=== PATIENT | female | born 1940 | race Caucasian/White ===

== ENCOUNTER 2018-05-01 12:33 | Inpatient (IN) | payer MEDICARE, BC ==
[2018-05-01] MEDS ORDERED: Sodium Chloride 0.9% 1,000 ML IV STA (12:51)
[2018-05-01 14:10] LABS: BASO % 0.2 % (0.0-2.0); EOS % 0.1 % (0.0-4.0); HEMOGLOBIN 14.5 g/dL (12.0-16.0); LYMPH # 0.7 K/uL (1.0-4.3); LYMPH % 3.9 % (20.0-40.0); MEAN CELL VOLUME 82.3 fl (81.0-99.0); MEAN CORPUSCULAR HEMOGLOBIN 27.5 pg (27.0-31.0); MEAN CORPUSCULAR HGB CONC 33.4 g/dL (33.0-37.0); MEAN PLATELET VOLUME 9.9 fl (7.2-11.7); MONO # 0.9 K/uL (0.0-0.8); MONO % 5.5 % (0.0-10.0); NEUT # 15.1 K/uL (1.8-7.0); NEUT % 90.3 % (50.0-75.0); NRBC % 0.1 % (0.0-0.0); PLATELET COUNT 171 K/uL (130-400); RBC 5.27 Mil/uL (3.80-5.20); RED CELL DISTRIBUTION WIDTH 14.4 % (11.5-14.5); WHITE BLOOD COUNT 16.7 K/uL (4.8-10.8)
[2018-05-01 14:33] LABS: ALB/GLOB RATIO 1.2 (1.0-2.1); ALT/SGPT 21 U/L (9-52); AST/SGOT 31 U/L (14-36); BLOOD UREA NITROGEN 17 mg/dl (7-17); CALCIUM 9.3 mg/dL (8.4-10.2); GFR NON-AFRICAN AMERICAN > 60; LIPASE 48 U/L (23-300)
[2018-05-01 14:37] LABS: INR 1.1; PROTHROMBIN TIME 12.4 Seconds (9.8-13.1)
[2018-05-01 14:39] LABS: URINE AMORPHOUS SEDIMENT OCC /ul (<OCC); URINE BACTERIA FEW (<OCC); URINE BILIRUBIN NEGATIVE (NEGATIVE); URINE BLOOD NEGATIVE (NEGATIVE); URINE CLARITY TURBID (Clear); URINE COLOR AMBER (YELLOW); URINE GLUCOSE (UA) NEG (Normal); URINE LEUKOCYTE ESTERASE NEG Leu/uL (Negative); URINE PROTEIN NEGATIVE (NEGATIVE)
[2018-05-01 14:40] LABS: PARTIAL THROMBOPLASTIN TIME 32.4 Seconds (25.6-37.1)
[2018-05-01 14:54] LABS: BANDS 4 % (0-2); LYMPHOCYTE 6 % (20-50); MONOCYTE 6 % (0-10); NEUTROPHIL 84 % (42-75); TOTAL CELLS COUNTED 100
[2018-05-01 14:55] LABS: PLATELET ESTIMATE NORMAL (NORMAL)
[2018-05-01] MEDS ORDERED: Iohexol 300 100 ML IJ ONE (16:06)
[2018-05-01] MEDS ORDERED: Sodium Chloride 0.9% 50 ML IV ONE (16:06)
--- NOTE | 2018-05-01 16:50 | ED PDOC ---
HPI: General Adult Time Seen by Provider: 05/01/18 12:46 Chief Complaint (Nursing): Dizziness/Lightheaded Chief Complaint (Provider): dizzy, abd pain, constipation History Per: Patient History/Exam Limitations: no limitations Current Symptoms Are (Timing): Still Present Severity: Moderate Additional Complaint(s): 77yo female c/o dizzy (lightheaded) associated with lower abdominal pain and inability to move her bowels. Notes nausea and 2 episodes nonbloody vomiting. Past Medical History Reviewed: Historical Data, Nursing Documentation, Vital Signs Vital Signs: Last Vital Signs Temp 99.0 F 05/01/18 16:50 Pulse 96 H 05/01/18 16:50 Resp 18 05/01/18 16:50 BP 132/58 L 05/01/18 16:50 Pulse Ox 97 05/01/18 19:55 - Surgical History Other surgeries: CODY - Family History Family History: States: Unknown Family Hx - Living Arrangements Living Arrangements: With Family - Social History Current smoker - smoking cessation education provided: No - Allergies Allergies/Adverse Reactions: Allergies Allergy/AdvReac Type Severity Reaction Status Date / Time sulfamethoxazole Allergy RASH Verified 05/01/18 12:44 [From Bactrim] trimethoprim [From Bactrim] Allergy RASH Verified 05/01/18 12:44 Review of Systems Constitutional: Negative for: Fever ENT: Negative for: Nose Discharge Cardiovascular: Negative for: Chest Pain Respiratory: Negative for: Cough Gastrointestinal: Positive for: Nausea, Vomiting, Abdominal Pain, Constipation Genitourinary Female: Negative for: Dysuria, Hematuria Musculoskeletal: Negative for: Neck Pain Skin: Negative for: Rash, Lesions Neurological: Negative for: Weakness Physical Exam - Reviewed Nursing Documentation Reviewed: Yes Vital Signs Reviewed: Yes - Physical Exam Appears: Positive for: Well, Non-toxic, No Acute Distress Head Exam: Positive for: ATRAUMATIC, NORMAL INSPECTION, NORMOCEPHALIC Skin: Positive for: Normal Color, Warm, DRY Eye Exam: Positive for: EOMI, Normal appearance, PERRL ENT: Positive for: Normal ENT Inspection Neck: Positive for: Normal, Painless ROM Cardiovascular/Chest: Positive for: Regular Rate, Rhythm Respiratory: Positive for: CNT, Normal Breath Sounds Gastrointestinal/Abdominal: Positive for: Soft, Tenderness Back: Positive for: Normal Inspection Extremity: Positive for: Normal ROM Neurologic/Psych: Positive for: Alert, Oriented - Laboratory Results Result Diagrams: 05/01/18 14:00 05/01/18 14:00 - ECG O2 Sat by Pulse Oximetry: 97 Medical Decision Making Medical Decision Making: labs reviewed reveal elev WBC 16.7 w left shift UA reveals evidence UTI chem unremarkable CT: Accession No. : [id number] Patient Name / ID : JALYN RUDOLPH / [id number] Exam Date : 05/01/2018 16:11:28 ( Approved ) Study Comment : Sex / Age : F / 77Y Creator : Sofi Limon MD Dictator : Sofi Limon MD Manual Training Teacher : Licensed Massage Practitioner : Sofi Limon MD Approver2 : Report Date : 05/01/2018 16:49:29 My Comment : Date of service: 05/01/2018 PROCEDURE: CT Abdomen and Pelvis with contrast HISTORY: lower abd pain obstipation dizzy COMPARISON: None. TECHNIQUE: CT scan of the abdomen and pelvis was performed after administration of intravenous contrast. Oral contrast was not administered. Coronal and sagittal reformatted images were obtained. Contrast dose: 90 mL Omnipaque 300 Radiation dose: Total exam DLP = 378.54 mGy-cm. This CT exam was performed using one or more of the following dose reduction techniques: Automated exposure control, adjustment of the mA and/or kV according to patient size, and/or use of iterative reconstruction technique. FINDINGS: LOWER THORAX: There is subsegmental atelectasis in the lingula and both lung bases. LIVER: Mild hepatomegaly and diffuse fatty. No gross lesion or ductal dilatation. GALLBLADDER AND BILE DUCTS: Well distended without evidence for calcified gallstones normal in size. PANCREAS: With homogeneous enhancement. No gross lesion or ductal dilatation. SPLEEN: Normal in size and appearance. ADRENALS: No discrete nodule. KIDNEYS AND URETERS: Normal in size with homogeneous enhancement. No hydronephrosis. There is a 10 mm exophytic simple cyst in the left upper pole. VASCULATURE: Atherosclerotic aortoiliac calcifications are present. No aortic aneurysm. BOWEL: The small bowel loops are normal in caliber. There is fecalization of small bowel contents. There is large amount of stool in the colon. There is apparent mild mural thickening in distal descending sigmoid colon with mild mural enhancement. There is mild pericolonic inflammatory changes without drainable abscess or fluid collection. There is mild sigmoid diverticulosis. APPENDIX: Normal appendix. PERITONEUM: No free fluid. No free air. LYMPH NODES: No enlarged lymph nodes. BLADDER: Normal in appearance. REPRODUCTIVE: The uterus is surgically absent. BONES: No acute fracture. There is diffuse bone demineralization and multilevel degenerative changes in the spine. OTHER FINDINGS: None. IMPRESSION: Findings are most compatible with acute nonspecific infectious/inflammatory colitis involving the distal descending and sigmoid colon. Severe constipation and fecalization of small bowel contents compatible with chronic stasis. -------- ED course: several hours into ED visit, HR >90, SIRS criteria + with elev WBC qualifies for sepsis, cultures obtained, lactate obtained and <2.0, zosyn initiated given elevated WBC, evidence of intra-abdominal infection, discomfort on exam and evidence dehydration, place Obs to medicine artist consultant Dr Stein Family and patient updated on results. Disposition - Clinical Impression Clinical Impression: Sepsis, Colitis, Dizziness - Patient ED Disposition Is Patient to be Admitted: Yes Counseled Patient/Family Regarding: Studies Performed, Diagnosis, Need For Followup - Disposition Disposition Time: 16:40 Condition: FAIR - Pt Status Changed To: Hospital Disposition Of: Observation - POA Present On Arrival: None
[2018-05-01] MEDS ORDERED: Piperacillin/Tazobact 3.375 GM in Sodium Chloride 0.9% 100 ML IVPB STA (17:34)
[2018-05-01] MEDS ORDERED: Piperacillin/Tazobact 3.375 gm Inj IVPB ONE (18:25)
[2018-05-01 19:00] LABS: VENOUS BLOOD GAS BASE EXCESS 2.4 mmol/L (0.0-2.0); VENOUS BLOOD GAS PCO2 38 mmHg (40-60); VENOUS BLOOD GAS PO2 21 mm/Hg (30-55); VENOUS BLOOD PH 7.45 (7.32-7.43)
[2018-05-01] MEDS: Dextrose 5%/0.45% NS 1,000 ML IV SCH (21:59)
[2018-05-01] MEDS: Latanoprost 0.005% Opht SOUTION OU SCH (22:10)
--- NOTE | 2018-05-01 22:45 | CARD ---
APPROVED REPORT Date of service: 05/01/2018 EKG Measurement Heart [id number] <Conclusion> Normal sinus rhythm Nonspecific T wave abnormality Abnormal ECG
[2018-05-02] MEDS: Piperacillin/Tazobact 3.375 GM in Sodium Chloride 0.9% 100 ML IVPB SCH ×4 (03:46→21:24)
[2018-05-02 05:56] LABS: BASO % 0.1 % (0.0-2.0); EOS # 0.1 K/uL (0.0-0.7); EOS % 1.1 % (0.0-4.0); HEMOGLOBIN 12.7 g/dL (12.0-16.0); LYMPH # 1.1 K/uL (1.0-4.3); LYMPH % 10.2 % (20.0-40.0); MEAN CELL VOLUME 83.7 fl (81.0-99.0); MEAN CORPUSCULAR HEMOGLOBIN 27.5 pg (27.0-31.0); MEAN CORPUSCULAR HGB CONC 32.9 g/dL (33.0-37.0); MEAN PLATELET VOLUME 9.8 fl (7.2-11.7); MONO # 0.7 K/uL (0.0-0.8); MONO % 6.6 % (0.0-10.0); NEUT # 9.1 K/uL (1.8-7.0); RBC 4.6 Mil/uL (3.80-5.20); RED CELL DISTRIBUTION WIDTH 14.9 % (11.5-14.5); WHITE BLOOD COUNT 11.1 K/uL (4.8-10.8)
[2018-05-02 06:13] LABS: ALB/GLOB RATIO 1.1 (1.0-2.1); ALBUMIN 3.1 g/dL (3.5-5.0); ALT/SGPT 26 U/L (9-52); AST/SGOT 26 U/L (14-36); BLOOD UREA NITROGEN 14 mg/dl (7-17); CALCIUM 8.4 mg/dL (8.4-10.2); GFR NON-AFRICAN AMERICAN > 60
[2018-05-02] MEDS: Potassium Chloride 20 mEq ER Tab PO SCH ×2 (09:00→16:11)
--- NOTE | 2018-05-02 13:10 | RAD ---
Date of service: 05/02/2018 HISTORY: constipation COMPARISON: No prior. FINDINGS: BOWEL: Normal. No obstruction. No free air. BONES: Normal. OTHER FINDINGS: None. IMPRESSION: No significant or acute findings to account for/ related to the clinical presentation.
[2018-05-02] MEDS ORDERED: Bisacodyl 5mg EC Tab PO ONE (13:13)
[2018-05-02] MEDS: Dextrose 5%/0.45% NS 1,000 ML IV SCH (14:42)
[2018-05-02] MEDS ORDERED: Magnesium Citrate Oral SOL (300 ml) PO ONE ×2 (15:09→16:50)
--- NOTE | 2018-05-02 19:18 | CP.PCM.HP ---
History of Present Illness - History of Present Illness History of Present Illness: HPI: Pt is a 77 y/o female with pmhx of HTN, HLD, and frequent UTI's who presented to ED with complaints of generalized weakness, lower abdominal pain, watery bowel movements, associated with 2 episodes of non bloody vomiting for the past 2-3 days. Denies fevers/chills, hematochezia, dysuria, sick contacts, recent travel, or ingestion of unusual foods. PMD: Dr. BEEBE notable for +frequent urination, +lightheadeness. PMHX: HTN, HLD, Frequent UTI's (was on [facility]p antibiotic therapy in the past) PSurgHx: Total Hysterectomy, Bladder Suspension FmHx: denies Social: Non smoker, denies alcohol or drug use. Lives with family ED Course/Interventions: -Pt noted to be Tachycardiac with Leukocytosis 16.7 -U/A: + Nitrates, few bacteria -Potasssium 3.2 -Abdomen/Pelvis CT: -S/P Zofran, IV Torodol, IV Fluids, Zosyn -Infectious/Inflammatory Colitis of descending and sigmoid colon, fecalization of small bowel suggesting chronic stasis Present on Admission - Present on Admission Any Indicators Present on Admission: No Past Patient History - Infectious Disease Hx of Infectious Diseases: None - Past Medical History & Family History Past Medical History?: Yes - Past Social History Smoking Status: Never Smoked - CARDIAC Hx Hypercholesterolemia: Yes Hx Hypertension: Yes Other/Comment: DVT, PE - PULMONARY Hx Pulmonary Embolism: Yes - NEUROLOGICAL Hx Transient Ischemic Attacks (TIA): Yes (NO RESIDUAL DEFICITS) - HEMATOLOGICAL/ONCOLOGICAL Hx AIDS: No Hx Human Immunodeficiency Virus (HIV): No - MUSCULOSKELETAL/RHEUMATOLOGICAL Hx Falls: No - PSYCHIATRIC Hx Substance Use: No - SURGICAL HISTORY Hx Surgeries: Yes Hx Hysterectomy: Yes Other/Comment: L4-L5 - ANESTHESIA Hx Anesthesia: Yes Hx Anesthesia Reactions: No Hx Malignant Hyperthermia: No Meds Allergies/Adverse Reactions: Allergies Allergy/AdvReac Type Severity Reaction Status Date / Time sulfamethoxazole Allergy RASH Verified 05/01/18 12:44 [From Bactrim] trimethoprim [From Bactrim] Allergy RASH Verified 05/01/18 12:44 Physical Exam - Constitutional Appears: Well, Non-toxic, No Acute Distress - Head Exam Head Exam: NORMAL INSPECTION - Eye Exam Eye Exam: Normal appearance - ENT Exam ENT Exam: Mucous Membranes Moist - Neck Exam Neck exam: Positive for: Full Rom - Respiratory Exam Respiratory Exam: Clear to Auscultation Bilateral - GI/Abdominal Exam GI & Abdominal Exam: Normal Bowel Sounds, Tenderness (Lower quadrants bilaterally, marked in left, no gaurding or rigidity) - Extremities Exam Extremities exam: Positive for: normal inspection - Neurological Exam Neurological exam: Alert, Oriented x3 - Psychiatric Exam Psychiatric exam: Normal Affect, Normal Mood - Skin Skin Exam: Normal Color Results - Vital Signs Recent Vital Signs: Last Vital Signs Temp 97.9 F 05/02/18 15:45 Pulse 73 05/02/18 15:45 Resp 20 05/02/18 15:45 BP 131/64 05/02/18 15:45 Pulse Ox 98 05/02/18 15:45 - Labs Result Diagrams: 05/02/18 05:39 05/02/18 05:39 Labs: Laboratory Results - last 24 hr 05/02/18 05/02/18 05:39 05:39 WBC 11.1 H RBC 4.60 Hgb 12.7 Hct 38.5 MCV 83.7 MCH 27.5 MCHC 32.9 L RDW 14.9 H Plt Count 150 MPV 9.8 Neut % (Auto) 82.0 H Lymph % (Auto) 10.2 L Blount % (Auto) 6.6 Eos % (Auto) 1.1 Baso % (Auto) 0.1 Neut # (Auto) 9.1 H Lymph # (Auto) 1.1 Blount # (Auto) 0.7 Eos # (Auto) 0.1 Baso # (Auto) 0.0 Sodium 139 Potassium 3.2 L Chloride 107 Carbon Dioxide 26 Anion Gap 9 L BUN 14 Creatinine 0.7 Est GFR ( Amer) > 60 Est GFR (Non-Af Amer) > 60 Random Glucose 166 H Calcium 8.4 Phosphorus 2.9 Magnesium 2.3 Total Bilirubin 1.0 AST 26 ALT 26 Alkaline Phosphatase 79 Total Protein 6.0 L Albumin 3.1 L D Globulin 2.9 Albumin/Globulin Ratio 1.1 Assessment & Plan (1) Colitis Status: Acute (2) Sepsis Status: Resolved (3) Hypokalemia Status: Acute (4) UTI (urinary tract infection) Status: Acute - Assessment and Plan (Free Text) Assessment: Pt is a 77 y/o female with pmhx of HTN, HLD, and frequent UTI's who presented to ED with complaints of generalized weakness, lower abdominal pain, watery bowel movements, and non bloody vomiting admitted for sepsis secondary to colitis. #Sepsis, resolved, no longer fits criteria #Colitis, acute, c/w Zosyn, f/u stool studies #Fecalization of stool on CT, chronic, GI consulted, Upright Abd Xray to rule out SBO #Hypokalemia, acute, repleted, f/u am bmp #UTI, Ucx pending, on Zosyn Discussed Case with Dr. Emil Valdez, PGY2
--- NOTE | 2018-05-02 19:55 | CP.PCM.CON ---
History of Present Illness - History of Present Illness History of Present Illness: 77 yo female coming to the ER c/o lightheadedness, lower abdominal pain, and inability to move bowels. Also c/o abdominal swelling and difficulty eating. Had 2 episodes of nonbloody vomiting. Past Patient History - Infectious Disease Hx of Infectious Diseases: None - Past Medical History & Family History Past Medical History?: Yes - Past Social History Smoking Status: Never Smoked - CARDIAC Hx Hypercholesterolemia: Yes Hx Hypertension: Yes Other/Comment: DVT, PE - PULMONARY Hx Pulmonary Embolism: Yes - NEUROLOGICAL Hx Transient Ischemic Attacks (TIA): Yes (NO RESIDUAL DEFICITS) - HEMATOLOGICAL/ONCOLOGICAL Hx AIDS: No Hx Human Immunodeficiency Virus (HIV): No - MUSCULOSKELETAL/RHEUMATOLOGICAL Hx Falls: No - PSYCHIATRIC Hx Substance Use: No - SURGICAL HISTORY Hx Surgeries: Yes Hx Hysterectomy: Yes Other/Comment: L4-L5 - ANESTHESIA Hx Anesthesia: Yes Hx Anesthesia Reactions: No Hx Malignant Hyperthermia: No Meds Allergies/Adverse Reactions: Allergies Allergy/AdvReac Type Severity Reaction Status Date / Time sulfamethoxazole Allergy RASH Verified 05/01/18 12:44 [From Bactrim] trimethoprim [From Bactrim] Allergy RASH Verified 05/01/18 12:44 - Medications Medications: Current Medications Amlodipine Besylate (Norvasc) 2.5 mg PO DAILY [facility] Last Admin: 05/02/18 09:01 Dose: 2.5 mg Atorvastatin Calcium (Lipitor) 20 mg PO HS [facility] Last Admin: 05/01/18 22:10 Dose: 20 mg Piperacillin Sod/Tazobactam (Sod 3.375 gm/ Sodium Chloride) 100 mls @ 100 mls/ hr IVPB Q6 [facility] PRN Reason: Protocol Last Admin: 05/02/18 16:13 Dose: 100 mls/hr Dextrose/Sodium Chloride (Dextrose 5%/0.45% Ns 1000 Ml) 1,000 mls @ 80 mls/hr IV [id number] [facility] Stop: 05/02/18 21:08 Last Admin: 05/02/18 14:42 Dose: 80 mls/hr Latanoprost (Xalatan Opht) 1 drop OU HS [facility] Last Admin: 05/01/18 22:10 Dose: 1 drop Losartan Potassium (Cozaar) 100 mg PO DAILY [facility] Last Admin: 05/02/18 09:01 Dose: 100 mg Timolol Maleate (Timoptic 0.5% Ophth Soln) 1 drop OU DAILY [facility] Last Admin: 05/02/18 10:20 Dose: 1 drop Physical Exam - Constitutional Appears: No Acute Distress - Head Exam Head Exam: ATRAUMATIC - Eye Exam Eye Exam: Normal appearance - ENT Exam ENT Exam: Normal Exam - Neck Exam Neck exam: Negative for: Lymphadenopathy - Respiratory Exam Respiratory Exam: Clear to Auscultation Bilateral - Cardiovascular Exam Cardiovascular Exam: REGULAR RHYTHM, +S1, +S2 - GI/Abdominal Exam GI & Abdominal Exam: Distended, Normal Bowel Sounds. absent: Tenderness Additional comments: Marked generalized distention Results - Vital Signs Recent Vital Signs: Last Vital Signs Temp 97.9 F 05/02/18 15:45 Pulse 73 05/02/18 15:45 Resp 20 05/02/18 15:45 BP 131/64 05/02/18 15:45 Pulse Ox 98 05/02/18 15:45 - Labs Result Diagrams: 05/02/18 05:39 05/02/18 05:39 Labs: Laboratory Results - last 24 hr 05/02/18 05/02/18 05:39 05:39 WBC 11.1 H RBC 4.60 Hgb 12.7 Hct 38.5 MCV 83.7 MCH 27.5 MCHC 32.9 L RDW 14.9 H Plt Count 150 MPV 9.8 Neut % (Auto) 82.0 H Lymph % (Auto) 10.2 L [place] % (Auto) 6.6 Eos % (Auto) 1.1 Baso % (Auto) 0.1 Neut # (Auto) 9.1 H Lymph # (Auto) 1.1 [place] # (Auto) 0.7 Eos # (Auto) 0.1 Baso # (Auto) 0.0 Sodium 139 Potassium 3.2 L Chloride 107 Carbon Dioxide 26 Anion Gap 9 L BUN 14 Creatinine 0.7 Est GFR ( Amer) > 60 Est GFR (Non-Af Amer) > 60 Random Glucose 166 H Calcium 8.4 Phosphorus 2.9 Magnesium 2.3 Total Bilirubin 1.0 AST 26 ALT 26 Alkaline Phosphatase 79 Total Protein 6.0 L Albumin 3.1 L D Globulin 2.9 Albumin/Globulin Ratio 1.1 - Imaging and Cardiology CT scan - abdomen Status: Image reviewed by me, Report reviewed by me Assessment & Plan (1) Abdominal distention Assessment and Plan: Marked abdominal distention with severe fecal impaction. Had been on an anticholinergic for urinary incontinence around the time symptoms began. CT demonstrated colon wall thickening with mild pericolonic inflammatory changes c/ w possible colitis. Will give dulcolax tablets and Magnesium Citrate to disimpact the small intestine/colon. Continue Zosyn for now . Will follow carefully clinically. Status: Acute
[2018-05-02] MEDS: Latanoprost 0.005% Opht SOUTION OU SCH (21:25)
[2018-05-03] MEDS: Piperacillin/Tazobact 3.375 GM in Sodium Chloride 0.9% 100 ML IVPB SCH ×4 (04:17→22:11)
[2018-05-03 05:51] LABS: BASO % 0.6 % (0.0-2.0); EOS # 0.4 K/uL (0.0-0.7); EOS % 5.7 % (0.0-4.0); HEMOGLOBIN 12.9 g/dL (12.0-16.0); LYMPH # 1.4 K/uL (1.0-4.3); LYMPH % 21.6 % (20.0-40.0); MEAN CELL VOLUME 83.8 fl (81.0-99.0); MEAN CORPUSCULAR HEMOGLOBIN 27.7 pg (27.0-31.0); MEAN CORPUSCULAR HGB CONC 33.1 g/dL (33.0-37.0); MEAN PLATELET VOLUME 9.7 fl (7.2-11.7); MONO # 0.5 K/uL (0.0-0.8); MONO % 8.5 % (0.0-10.0); NEUT # 4.1 K/uL (1.8-7.0); NEUT % 63.6 % (50.0-75.0); RBC 4.65 Mil/uL (3.80-5.20); RED CELL DISTRIBUTION WIDTH 14.6 % (11.5-14.5); WHITE BLOOD COUNT 6.4 K/uL (4.8-10.8)
[2018-05-03 06:21] LABS: BLOOD UREA NITROGEN 7 mg/dl (7-17); CALCIUM 8.6 mg/dL (8.4-10.2); GFR NON-AFRICAN AMERICAN > 60
[2018-05-03] MEDS: Potassium Chloride 20 mEq ER Tab PO SCH ×2 (08:15→17:15)
--- NOTE | 2018-05-03 08:59 | CP.PCM.PN ---
Subjective - Date & Time of Evaluation Date of Evaluation: 05/03/18 Time of Evaluation: 08:00 - Subjective Subjective: PGY-4 GI Fellow Consult Note Pt lying in bed when seen this AM. States that abd pain mildly improved after watery BMs, but no sig solid BMs yet. 5 point ROS negative other than stated above Objective - Vital Signs/Intake and Output Vital Signs (last 24 hours): Temp Pulse Resp BP Pulse Ox 97.7 F 56 L 20 122/67 98 05/03/18 08:22 05/03/18 08:22 05/03/18 08:22 05/03/18 08:22 05/03/18 08:22 - Medications Medications: Current Medications Amlodipine Besylate (Norvasc) 2.5 mg PO DAILY [facility] Last Admin: 05/03/18 08:13 Dose: 2.5 mg Atorvastatin Calcium (Lipitor) 20 mg PO HS [facility] Last Admin: 05/02/18 21:25 Dose: 20 mg Piperacillin Sod/Tazobactam (Sod 3.375 gm/ Sodium Chloride) 100 mls @ 100 mls/ hr IVPB Q6 [facility] PRN Reason: Protocol Last Admin: 05/03/18 04:17 Dose: 100 mls/hr Latanoprost (Xalatan Opht) 1 drop OU HS [facility] Last Admin: 05/02/18 21:25 Dose: 1 drop Losartan Potassium (Cozaar) 100 mg PO DAILY [facility] Last Admin: 05/03/18 08:13 Dose: 100 mg Potassium Chloride (K-Dur 20 Meq Er Tab) 20 meq PO BID [facility] Stop: 05/03/18 17:01 Last Admin: 05/03/18 08:15 Dose: 20 meq Timolol Maleate (Timoptic 0.5% Ophth Soln) 1 drop OU DAILY [facility] Last Admin: 05/03/18 08:13 Dose: 1 drop - Labs Labs: 05/03/18 04:20 05/03/18 04:20 PT 12.4 Seconds (9.8-13.1) 05/01/18 14:15 INR 1.1 05/01/18 14:15 APTT 32.4 Seconds (25.6-37.1) 05/01/18 14:15 - Constitutional Appears: Well, No Acute Distress - Head Exam Head Exam: ATRAUMATIC, NORMAL INSPECTION - Eye Exam Eye Exam: EOMI. absent: Conjunctival injection, Scleral icterus - ENT Exam ENT Exam: Mucous Membranes Moist. absent: Mucous Membranes Dry, Normal External Ear Exam - Respiratory Exam Respiratory Exam: NORMAL BREATHING PATTERN. absent: Accessory Muscle Use, Wheezes - Cardiovascular Exam Cardiovascular Exam: REGULAR RHYTHM, RRR - GI/Abdominal Exam GI & Abdominal Exam: Distended (mildy), Soft, Tenderness (in bilateral lower quads and somewhat firm to deeper palpation), Normal Bowel Sounds. absent: Bruit, Firm, Guarding, Rigid, Mass, Organomegaly, Pulsatile Mass - Rectal Exam Rectal Exam: Deferred - Psychiatric Exam Psychiatric exam: Normal Affect, Normal Mood Assessment and Plan - Assessment and Plan (Free Text) Assessment: 77 yo F with HTN, HLD, h/o UTIs presenting with abd pain and distension. # Abd Pain and distenstion: Most likely related to extensive stool burden throughout colon. Loose BMs likely related to overflow. Also with possible underlying infectious colitis with loose stools, inflam changes seen and increased WBCs upon presentation; though could be reactive. Trigger to constipation likely related to recent bladder spasm medication with anti- cholinergic side effects though patient has recently stopped taking medication. Plan: - Milk of Mag and Dulcolax this AM - Encourage ambulation - Advanced diet to low fat - OK to stop antibiotics from GI standpoint, defer to primary - Encouraged patient to take daily stool softeners or miralax to stay regular - OK to DC from GI standpoint as long as abd pain continues to improved with stooling and tolerating diet Pt seen and examined with Dr. Vera. Thank you for the consult. Please see attestation for further recs/changes.
[2018-05-03] MEDS ORDERED: Chlorhexidine Gluconate 1 APPL/PKT TP ONE (09:21)
[2018-05-03] MEDS ORDERED: Bisacodyl 5mg EC Tab PO ONE (09:36)
[2018-05-03] MEDS ORDERED: Magnesium Hydroxide Susp 30 ml UD PO ONE (09:45)
--- NOTE | 2018-05-03 16:08 | CP.PCM.PN ---
Subjective - Date & Time of Evaluation Date of Evaluation: 05/03/18 Time of Evaluation: 09:00 - Subjective Subjective: Pt seen and examined this morning. No events overnight. Pt states she had 3-4 brown watery bowel movements with subsequent relief of abdominal cramping. Denies any well formed stool. Objective - Vital Signs/Intake and Output Vital Signs (last 24 hours): Temp Pulse Resp BP Pulse Ox 98.0 F 67 18 127/73 97 05/03/18 12:42 05/03/18 12:42 05/03/18 12:42 05/03/18 12:42 05/03/18 12:42 - Medications Medications: Current Medications Amlodipine Besylate (Norvasc) 2.5 mg PO DAILY [facility] Last Admin: 05/03/18 08:13 Dose: 2.5 mg Atorvastatin Calcium (Lipitor) 20 mg PO HS [facility] Last Admin: 05/02/18 21:25 Dose: 20 mg Piperacillin Sod/Tazobactam (Sod 3.375 gm/ Sodium Chloride) 100 mls @ 100 mls/ hr IVPB Q6 [facility] PRN Reason: Protocol Last Admin: 05/03/18 04:17 Dose: 100 mls/hr Latanoprost (Xalatan Opht) 1 drop OU HS [facility] Last Admin: 05/02/18 21:25 Dose: 1 drop Losartan Potassium (Cozaar) 100 mg PO DAILY [facility] Last Admin: 05/03/18 08:13 Dose: 100 mg Potassium Chloride (K-Dur 20 Meq Er Tab) 20 meq PO BID [facility] Stop: 05/03/18 17:01 Last Admin: 05/03/18 08:15 Dose: 20 meq Timolol Maleate (Timoptic 0.5% Ophth Soln) 1 drop OU DAILY [facility] Last Admin: 05/03/18 08:13 Dose: 1 drop - Labs Labs: 05/03/18 04:20 05/03/18 04:20 PT 12.4 Seconds (9.8-13.1) 05/01/18 14:15 INR 1.1 05/01/18 14:15 APTT 32.4 Seconds (25.6-37.1) 05/01/18 14:15 - Constitutional Appears: Well, Non-toxic, No Acute Distress - Head Exam Head Exam: NORMAL INSPECTION - Eye Exam Eye Exam: Normal appearance - ENT Exam ENT Exam: Mucous Membranes Moist - Neck Exam Neck Exam: Full ROM - Respiratory Exam Respiratory Exam: Clear to Ausculation Bilateral. absent: Rales, Wheezes - Cardiovascular Exam Cardiovascular Exam: REGULAR RHYTHM, +S1, +S2. absent: Murmur - GI/Abdominal Exam GI & Abdominal Exam: Soft, Normal Bowel Sounds. absent: Distended, Tenderness - Extremities Exam Extremities Exam: Normal Inspection. absent: Pedal Edema - Neurological Exam Neurological Exam: Alert, Oriented x3 - Psychiatric Exam Psychiatric exam: Normal Affect, Normal Mood - Skin Skin Exam: Normal Color Assessment and Plan (1) Colitis Status: Acute (2) Sepsis Status: Resolved (3) Hypokalemia Status: Acute (4) UTI (urinary tract infection) Status: Acute - Assessment and Plan (Free Text) Assessment: Pt is a 77 y/o female with pmhx of HTN, HLD, and frequent UTI's who presented to ED with complaints of generalized weakness, lower abdominal pain, watery bowel movements, and non bloody vomiting admitted for sepsis secondary to colitis and fecal impaction. #Colitis, resolving, As per GI can discontinue ABX but will continue as UCx is + for GNR (pending sensivities) #Fecalization of stool on CT, chronic, GI consulted- Dulcolax and MgCitrate, Upright Abd Xray negative for SBO, cleared for d/c #Hypokalemia, resolved #Ucx GNR, called lab, sensitivities should be complete by tomorrow. C/W Timothy Discussed Case with Dr. Emil Valdez, PGY2
[2018-05-03] MEDS: Latanoprost 0.005% Opht SOUTION OU SCH (22:13)
[2018-05-04] MEDS: Piperacillin/Tazobact 3.375 GM in Sodium Chloride 0.9% 100 ML IVPB SCH ×2 (04:50→09:13)
[2018-05-04 08:05] VITALS: BP 121/71; PULSE 58; RESP 20; TEMP 98.6; O2SAT 98
--- NOTE | 2018-05-05 11:38 | CP.PCM.DIS ---
Provider - Provider Date of Admission: 05/03/18 13:54 Attending physician: Ruel Stein MD Consults: GI - Dr. Vera Time Spent in preparation of Discharge (in minutes): 30 Diagnosis - Discharge Diagnosis (1) UTI (urinary tract infection) Status: Acute (2) Sepsis Status: Resolved Hospital Course - Lab Results Lab Results: Micro Results 05/01/18 18:30 Blood Blood Culture - Preliminary NO GROWTH AFTER 3 DAYS 05/01/18 18:38 Blood Blood Culture - Preliminary NO GROWTH AFTER 3 DAYS 05/02/18 18:34 Stool Stool Culture - Final NO SALMONELLA, SHIGELLA OR CAMPYLOBACTER ISOLATED. 05/01/18 19:13 Urine Urine Culture - Final Escherichia Coli 05/02/18 18:30 Stool Ova and Parasite Concentrate Exam - Final Most Recent Lab Values WBC 6.4 K/uL (4.8-10.8) 05/03/18 04:20 RBC 4.65 Mil/uL (3.80-5.20) 05/03/18 04:20 Hgb 12.9 g/dL (12.0-16.0) 05/03/18 04:20 Hct 38.9 % (34.0-47.0) 05/03/18 04:20 MCV 83.8 fl (81.0-99.0) 05/03/18 04:20 MCH 27.7 pg (27.0-31.0) 05/03/18 04:20 MCHC 33.1 g/dL (33.0-37.0) 05/03/18 04:20 RDW 14.6 % (11.5-14.5) H 05/03/18 04:20 Plt Count 145 K/uL (130-400) 05/03/18 04:20 MPV 9.7 fl (7.2-11.7) 05/03/18 04:20 Neut % (Auto) 63.6 % (50.0-75.0) 05/03/18 04:20 Lymph % (Auto) 21.6 % (20.0-40.0) 05/03/18 04:20 [place] % (Auto) 8.5 % (0.0-10.0) 05/03/18 04:20 Eos % (Auto) 5.7 % (0.0-4.0) H 05/03/18 04:20 Baso % (Auto) 0.6 % (0.0-2.0) 05/03/18 04:20 Neut # (Auto) 4.1 K/uL (1.8-7.0) 05/03/18 04:20 Lymph # (Auto) 1.4 K/uL (1.0-4.3) 05/03/18 04:20 [place] # (Auto) 0.5 K/uL (0.0-0.8) 05/03/18 04:20 Eos # (Auto) 0.4 K/uL (0.0-0.7) 05/03/18 04:20 Baso # (Auto) 0.0 K/uL (0.0-0.2) 05/03/18 04:20 Neutrophils % (Manual) 84 % (42-75) H 05/01/18 14:00 Band Neutrophils % 4 % (0-2) H 05/01/18 14:00 Lymphocytes % (Manual) 6 % (20-50) L 05/01/18 14:00 Monocytes % (Manual) 6 % (0-10) 05/01/18 14:00 Platelet Estimate Normal (NORMAL) 05/01/18 14:00 RBC Morphology Normal (NORMAL) 05/01/18 14:00 PT 12.4 Seconds (9.8-13.1) 05/01/18 14:15 INR 1.1 05/01/18 14:15 APTT 32.4 Seconds (25.6-37.1) 05/01/18 14:15 pO2 21 mm/Hg (30-55) L 05/01/18 18:57 VBG pH 7.45 (7.32-7.43) H 05/01/18 18:57 VBG pCO2 38 mmHg (40-60) L 05/01/18 18:57 VBG HCO3 25.2 mmol/L 05/01/18 18:57 VBG Total CO2 27.6 mmol/L (22-28) 05/01/18 18:57 VBG O2 Sat (Calc) 43.3 % (40-65) 05/01/18 18:57 VBG Base Excess 2.4 mmol/L (0.0-2.0) H 05/01/18 18:57 VBG Potassium 3.7 mmol/L (3.6-5.2) 05/01/18 18:57 Sodium 137.0 mmol/L (132-148) 05/01/18 18:57 Chloride 105.0 mmol/L (98-107) 05/01/18 18:57 Glucose 115 mg/dL (65-105) H 05/01/18 18:57 Lactate 1.8 mmol/L (0.7-2.1) 05/01/18 18:57 FiO2 21.0 % 05/01/18 18:57 Sodium 142 mmol/l (132-148) 05/03/18 04:20 Potassium 4.1 MMOL/L (3.6-5.0) 05/03/18 04:20 Chloride 111 mmol/L (98-107) H 05/03/18 04:20 Carbon Dioxide 28 mmol/L (22-30) 05/03/18 04:20 Anion Gap 7 (10-20) L 05/03/18 04:20 BUN 7 mg/dl (7-17) 05/03/18 04:20 Creatinine 0.7 mg/dl (0.7-1.2) 05/03/18 04:20 Est GFR ( Amer) > 60 05/03/18 04:20 Est GFR (Non-Af Amer) > 60 05/03/18 04:20 Random Glucose 112 mg/dL (65-105) H 05/03/18 04:20 Calcium 8.6 mg/dL (8.4-10.2) 05/03/18 04:20 Phosphorus 2.9 mg/dl (2.5-4.5) 05/02/18 05:39 Magnesium 2.3 MG/DL (1.6-2.3) 05/02/18 05:39 Total Bilirubin 1.0 mg/dl (0.2-1.3) 05/02/18 05:39 AST 26 U/L (14-36) 05/02/18 05:39 ALT 26 U/L (9-52) 05/02/18 05:39 Alkaline Phosphatase 79 U/L (38-126) 05/02/18 05:39 Troponin I < 0.0120 ng/mL (0.00-0.120) 05/01/18 14:00 Total Protein 6.0 G/DL (6.3-8.2) L 05/02/18 05:39 Albumin 3.1 g/dL (3.5-5.0) L D 05/02/18 05:39 Globulin 2.9 gm/dL (2.2-3.9) 05/02/18 05:39 Albumin/Globulin Ratio 1.1 (1.0-2.1) 05/02/18 05:39 Lipase 48 U/L (23-300) 05/01/18 14:00 Venous Blood Potassium 3.7 mmol/L (3.6-5.2) 05/01/18 18:57 Urine Color Cora (YELLOW) 05/01/18 14:00 Urine Clarity Turbid (Clear) 05/01/18 14:00 Urine pH 7.0 (5.0-8.0) 05/01/18 14:00 Ur Specific [place] 1.016 (1.003-1.030) 05/01/18 14:00 Urine Protein Negative mg/dL (NEGATIVE) 05/01/18 14:00 Urine Glucose (UA) Neg mg/dL (Normal) 05/01/18 14:00 Urine Ketones Negative mg/dL (NEGATIVE) 05/01/18 14:00 Urine Blood Negative (NEGATIVE) 05/01/18 14:00 Urine Nitrate Positive (NEGATIVE) H 05/01/18 14:00 Urine Bilirubin Negative (NEGATIVE) 05/01/18 14:00 Urine Urobilinogen 2.0 mg/dL (0.2-1.0) H 05/01/18 14:00 Ur Leukocyte Esterase Neg Dante/uL (Negative) 05/01/18 14:00 Urine RBC (Auto) 3 /hpf (0-3) 05/01/18 14:00 Urine Microscopic WBC 12 /hpf (0-5) H 05/01/18 14:00 Amorphous Sediment Occ /ul (<OCC) H 05/01/18 14:00 Urine Bacteria Few (<OCC) H 05/01/18 14:00 - Hospital Course Hospital Course: 77 y/o female with pmhx of HTN, HLD, and frequent UTI's who presented to ED with complaints of generalized weakness, lower abdominal pain, watery bowel movements, and non bloody vomiting was admitted for sepsis secondary to UTI and colitis and noted to have small bowel fecal impaction on CT scan. Patient improved on IV abx, started on Zosyn and once urine cultures were resulted, switched to cipro x7 days. GI cleared patient. Patient to follow up with PCP and GI this week. Discharge Plan - Follow Up Plan Condition: STABLE Disposition: HOME/ ROUTINE Instructions: Urinary Tract Infections in Adults, Diarrhea in Adolescents and Adults Additional Instructions: Follow up with Primary medical doctor 1 week Follow up with GI doctor 1 week Referrals: Ruel Stein MD [Medical Doctor] - Kali Vera MD [Staff Provider] -
== END 2018-05-04 14:25 | disposition home or self-care (01) | DRG 872 ==
LOC: H.ER 12:33 → H.ERHOLD 18:28 → H.TEL 20:50 → OBSVTOIN 05-03 13:54 → H.MEDSURG1 05-03 21:58
PROVIDERS: ADMIT Family Medicine; ATTEND Family Medicine
DX: A41.9 Sepsis, unspecified organism (principal); N39.0 Urinary tract infection, site not specified; K56.41 Fecal impaction; E87.6 Hypokalemia; E78.5 Hyperlipidemia, unspecified; E78.00 Pure hypercholesterolemia, unspecified; I10 Essential (primary) hypertension; Z86.73 Personal history of transient ischemic attack (TIA), and cerebral infarction without residual deficits; R32 Unspecified urinary incontinence; E86.0 Dehydration; Z88.2 Allergy status to sulfonamides; Z86.711 Personal history of pulmonary embolism; T44.3X5A Adverse effect of other parasympatholytics [anticholinergics and antimuscarinics] and spasmolytics, initial encounter; K52.89 Other specified noninfective gastroenteritis and colitis